=== PATIENT | female | born 1990 | race Hispanic/Latino ===

== ENCOUNTER 2022-02-11 07:34 | Day surgery (SDC) | payer MEDICAID ==
[2022-02-11 10:19] VITALS: BP 103/52
== END 2022-02-11 10:30 | disposition home or self-care (01) ==
LOC: ORM 07:34
PROVIDERS: ATTEND Physical Medicine & Rehabilitation
DX: M53.3 Sacrococcygeal disorders, not elsewhere classified (principal); M62.838 Other muscle spasm; G89.4 Chronic pain syndrome
CPT/HCPCS: Q9967